=== PATIENT | female | born 1980 | race Caucasian/White ===

== ENCOUNTER 2024-09-14 15:01 | Emergency (ER) | payer MEDICAID, SELFPAY ==
[2024-09-14 15:24] VITALS: BP 160/104; PULSE 94; TEMP 36.8; O2SAT 96; BMI 37.2
--- NOTE | 2024-09-14 16:01 | ED_ITS ---
HPI - Back Pain/Injury 2 General: Chief Complaint: Back Pain/Injury Stated Complaint: lower back/ R side pain Time Seen by Provider: 09/14/24 15:21 Source: patient Mode of arrival: ambulatory Limitations: no limitations History of Present Illness: Patient is a 43-year-old female presents to ED today with complaint of right sided back pain beginning yesterday. She feels like pain is burning and worse with movement and palpation. She has no other complaints. No cough, shortness of breath, or difficulty breathing. Denies abdominal pain, nausea, vomiting, or changes in bowel movements. She is not having any dysuria, frequency, urgency. She states she had identical symptoms approximately a month ago and was seen elsewhere for evaluation. Patient states she had urine, labs, and CT imaging performed overall of which were unremarkable. She does have her CT report on her phone and this was reviewed. They found hepatomegaly/fatty liver and incidental adrenal nodules. She states she is following up on these. She has no other injuries or complaints at this time. She appears in no acute distress upon arrival. MD elicited complaint: back pain Onset (ago): day(s) Timing: constant Severity: moderate Similar Symptoms Previously: Yes Quality: burning Location: thoracic spine and right lower back Radiation: none Exacerbating factors: movement Relieving factors: none Associated symptoms: Deny abdominal pain, chills, difficulty walking, dysuria, fatigue, fever(s), nausea, urinary urgency or vomiting Work related injury: No Related Data Previous Rx's ?Medication ?Instructions ?Recorded diclofenac sodium 50 mg 50 mg PO Q12H PRN pain #20 t abs 09/14/24 tablet,delayed release methocarbamol 500 mg tablet 1,000 mg (2 x 500 mg) PO Q 8H #30 09/14/24 tabs Allergies Allergy/AdvReac Type Severity Reaction Status Date / Time aspirin Allergy Unknown Verified 09/14/24 15:28 Review of Systems 2 Const: Denies: fever(s), chills, body aches, fatigue or malaise Card: Denies: chest pain Resp: Denies: dyspnea GI: Denies: abdominal pain, nausea, vomiting or diarrhea : Denies: difficulty voiding, dysuria, urinary frequency, urinary urgency, urinary hesitancy or pelvic pain Musc: Reports: back pain; Denies: neck pain, extremity pain, extremity swelling, joint pain, joint swelling or joint redness Skin/Breast: Denies: rash Neuro: Denies: numbness in extremities, weakness in extremities, sensory changes or difficulty walking Physical Exam 2 Const: COMMON NORMALS: no acute distress, patient oriented x3, no limitations, alert and well nourished GENERAL APPEARANCE: cooperative NUTRITIONAL APPEARANCE: obese ORIENTATION/CONSCIOUSNESS: Yes awake, Yes oriented to person, Yes oriented to place and Yes oriented to time Chest: COMMONS NORMALS: normal inspection of the chest and normal palpation of entire chest wall Resp: COMMON NORMALS: normal respiratory effort and clear to auscultation bilaterally AUSCULTATION: clear to auscultation bilaterally Cardio: COMMON NORMALS: regular rate and regular rhythm RATE: regular rate RHYTHM: regular rhythm GI: COMMON NORMALS: Normal to inspection, nondistended, normoactive bowel sounds present, Soft to palpation, non-tender, No hepatosplenomegaly present and no masses PALPATION: Yes Soft to palpation and Yes No hepatosplenomegaly present : COMMON NORMALS: Yes no CVA tenderness BLADDER/KIDNEY EXAM: Yes no CVA tenderness Back/Pelvis: COMMON NORMALS: no CVA tenderness, thoracic and lumbar spine normal to inspection, thoraco-lumbar ROM normal and straight leg raise negative bilaterally THORACIC SPINE/UPPER BACK: No thoracic spinal tenderness L UMBAR SPINE/LOWER BACK: No lumbar spinal tenderness PELVIS: No sciatic notch tenderness SACROILIAC JOINTS: Yes SI joints normal SACRUM: no tenderness COCCYX: no tenderness BACK IMAGE (FEMALE): 1. TTP Extremity: GENERAL: Yes normal exam except as noted Neuro: COMMON NORMALS: patient oriented x3 SENSORIUM/ORIENTATION: Yes alert, Yes oriented to person, Yes oriented to place and Yes oriented to time Skin: COMMON NORMALS: no rashes or lesions noted GENERAL SKIN EXAM: no rashes or lesions noted Course 2 Vital Signs: Vital signs: Vital Signs Temperature 98.2 F 09/14/24 15:24 Pulse Rate 94 09/14/24 15:24 Blood Pressure 160/104 09/14/24 15:24 Pulse Oximetry 96 09/14/24 15:24 Oxygen Delivery Me thod Room Air 09/14/24 15:24 MDM - Back Pain/Injury Medical Decision Making Patient is reproducible back pain to the right side of her back. She appears no acute distress. CT imaging performed a month ago was essentially unremarkable. She is not having any signs or symptoms that would make me concerned for a pyelonephritis. History/clinical presentation seemingly unlikely for ureterolithiasis. She states last time her symptoms resolved spontaneously. Will treat with anti-inflammatories and muscle relaxers. Recommend drinking plenty of fluids. Did discuss returning for worsening symptoms. Otherwise would like her to follow up with PCP. Medical Records I reviewed the patient's medical records. No radiology studies performed this visit Discharge Plan Discharge Patient Disposition: Home Clinical Impression: Acute right-sided back pain Qualifiers: Back pain location: low back pain Sciatica presence: without sciatica Qualified Code(s): M54.50 - Low back pain, unspecified Condition: Stable Prescriptions: New methocarbamol 500 mg tablet 1,000 mg PO Q8H Qty: 30 0RF diclofenac sodium 50 mg tablet,delayed release (DR/EC) 50 mg PO Q12H PRN (Reason: pain) Qty: 20 0RF Discharge Orders: Discharge ED (Routine); Ordered 09/14/24 Ordered By: Mabel Ramsey Activity Restrictions/Additional Instructions: As we discussed, we went over the results of the last CT scan you had approximately a month ago. At this time I would forego repeat imaging today due to the risk of repeated radiation. We will treat with anti-inflammatories and muscle relaxers. You may do ice and heat to the area as well as topical therapies such as IcyHot. Please follow-up with primary care. You may return to the emergency department for worsening pain or any other concerns you may have. I hope you begin to feel better soon. Print Language: Cape Verdean Coding Level of Care Code ED Eyeglass Lens Grinder for Mary Clarke
[2024-09-14] MEDS: orphenadrine 30 mg/mL Inj 2 mL 60 MG IM (16:11)
[2024-09-14 16:28] VITALS: BP 149/81; PULSE 95; O2SAT 96
== END 2024-09-14 16:30 | disposition home or self-care (01) ==
PROVIDERS: Emergency Provider Physician Assistant
DX: M54.50 Low back pain, unspecified (principal)
CPT/HCPCS: 96372; 99283; J2360

== ENCOUNTER 2024-09-22 15:47 | Emergency (ER) | payer MEDICAID, SELFPAY ==
[2024-09-22 15:50] VITALS: BP 143/86; PULSE 108; RESP 15; TEMP 36.7; O2SAT 99; BMI 30.2
--- NOTE | 2024-09-22 15:54 | ECG_ITS ---
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 Measurements Intervals Maybee Rate: 109 P: 55 PA: 167 QRS: 59 QRSD: 77 T: 44 QT: 311 QTc: 419 Interpretive Statements SINUS TACHYCARDIA NONSPECIFIC T-WAVE ABNORMALITY ABNORMAL RHYTHM ECG No previous ECG available for comparison Electronically Signed On 09-22-2024 19:25:01 CDT by Caron Langley M.D. [email or web address]
[2024-09-22 16:29] VITALS: BP 150/104; PULSE 95; O2SAT 96
--- NOTE | 2024-09-22 16:34 | ED_ITS ---
HPI - Recheck/Abnormal Lab/Rx 2 General: Chief Complaint: Recheck/Abnormal Lab/Rx Stated Complaint: high B/P , rapid heart beat Time Seen by Provider: 09/22/24 16:32 Source: patient Mode of arrival: ambulatory Limitations: no limitations History of Present Illness: 43-year-old female states she has had a history of palpitations in the past and mitral valve regurg states that over the last 2 days she had fell like her heart has been racing her blood pressure been running high states she had stopped at [employer] and it was in the 150s. She had some mild chest pains denies any chest pain currently she denies any shortness of breath denies any worse improved factors states she had moved here from [place] has not been able to follow- up with anyone here did have a cardiology density Related Data Previous Rx's ?Medication ?Instructions ?Recorded diclofenac sodium 50 mg 50 mg PO Q12H PRN pain #20 t abs 09/14/24 tablet,delayed release methocarbamol 500 mg tablet 1,000 mg (2 x 500 mg) PO Q 8H #30 09/14/24 tabs metoprolol succinate 25 mg 25 mg PO DAILY #30 tabs tablet,extended release 24 hr Allergies Allergy/AdvReac Type Severity Reaction Status Date / Time aspirin Allergy Unknown Verified 09/14/24 15:28 Review of Systems 2 Const: Denies: fever(s), chills, body aches or change in appetite ENMT: Denies: throat pain or dental pain Card: Reports: chest pain and palpitations Resp: Denies: dyspnea GI: Denies: abdominal pain, nausea, vomiting or diarrhea Musc: Denies: neck pain or back pain Skin/Breast: Denies: rash Neuro: Denies: headache(s) Physical Exam 2 Const: COMMON NORMALS: no acute distress, patient oriented x3 and healthy appearing HENMT: COMMON NORMALS: normocephalic and atraumatic HEAD & SCALP: n ormocephalic and atraumatic Eye: COMMON NORMALS: conjunctivae normal CONJUNCTIVA: Yes conjunctivae normal Neck/C-Spine: COMMON NORMALS: full ROM and supple Chest: COMMONS NORMALS: normal inspection of the chest Resp: COMMON NORMALS: normal respiratory effort, No retractions, No use of accessory muscles and clear to auscultation bilaterally AUSCULTATION: clear to auscultation bilaterally Cardio: COMMON NORMALS: regular rhythm RATE: tachycardic RHYTHM: regular rhythm GI: COMMON NORMALS: Normal to inspection, nondistended, normoactive bowel sounds present, Soft to palpation, non-tender and no masses PALPATION: Yes Soft to palpation Extremity: COMMON NORMALS: normal to inspection and full ROM Neuro: COMMON NORMALS: patient oriented x3, moves all extremities and no focal motor deficits Psych: COMMON NORMALS: mental status grossly normal, Normal thought process present and cooperative THOUGHT PROCESS: Normal thought process present Skin: COMMON NORMALS: no rashes or lesions noted and no wounds GENERAL SKIN EXAM: no rashes or lesions noted Course 2 Vital Signs: Vital signs: Vital Signs Temperature 98.0 F 09/22/24 15:50 Pulse Rate 96 09/22/24 17:29 Respiratory Rate 15 09/22/24 15:50 Blood Pressure 127/80 09/22/24 17:29 Pulse Oximetry 96 09/22/24 17:29 Oxygen Delivery Me thod Room Air 09/22/24 15:50 MDM - Recheck/Abnormal Lab/Rx Medical Decision Making Patient presents here with palpitations on hypertension some intermittent chest pains for some time her troponin here is negative she has no signs of acute coronary syndrome no signs of pulm embolism heart rate and blood pressure improved here after labetalol we will start her on metoprolol get her follow-up with cardiology she is return if worsening. Medical Records I reviewed the patient's medical records. Lab Data I reviewed the patient's lab results. 09/22/24 16:29 09/22/24 16:29 Laboratory Results WBC 10.93 10^3/uL (3.29-11.43) 09/22/24 16:29 RBC 4.73 10^6/uL (3.85-5.65) 09/22/24 16: Hgb 14.60 g/dL (11.27-16.99) 09/22/24 16: Hct 43.3 % (36-47) 09/22/24 16:29 MCV 91.5 fl (85-98) 09/22/24 16: MCH 30.9 pg (27-33) 09/22/24 16: MCHC 33.7 g/dL (30-55) 09/22/24 16:29 RDW 12.7 % (12.1-15.1) 09/22/24 16: Plt Count 318 10^3/cmm (157-399) 09/22/24 16: MPV 9.1 fL (7.4-10.4) 09/22/24 16: Neut % (Auto) 66.2 % 09/22/24 16: Lymph % (Auto) 27.2 % 09/22/24 16: Catron % (Auto) 4.3 % 09/22/24 16: Eos % (Auto) 1.4 % 09/22/24 16: Baso % (Auto) 0.6 % 09/22/24: Neut # (Auto) 7.24 10^3/uL (1.8-7.7) 09/22/24 16: Lymph # (Auto) 3.0 10^3/uL (0.8-4.8) 09/22/24: Catron # (Auto) 0.5 10^3/uL (0.2-0.9) 09/22/24 16: Eos # (Auto) 0.2 10^3/uL (0.0-0.8) 09/22/24 16: Baso # (Auto) 0.1 10^3/uL (0.0-0.1) 09/22/24 16: Nucleated RBC % (auto) 0 % 09/22/24: Nucleated RBCs # 0.0 /100WBC 09/22/24 16: Sodium 137 mmol/L (136-145) 09/22/24 16: Potassium 4.1 mmol/L (3.5-5.1) 09/22/24 16: Chloride 101 mmol/L (98-107) 09/22/24 16: Carbon Dioxide 22 mmol/L (22-29) 09/22/24 16: Anion Gap 18.1 (5-19) 09/22/24 16: BUN 11 mg/dL (6-20) 09/22/24 16: Creatinine 0.7 mg/dL (0.5-0.9) 09/22/24 16: GFR Calculation 92.2 mL/min (90-130) 09/22/24 16:29 Glucose 99 mg/dL (65-115) 09/22/24 16:29 Calculated Osmolality 283 mOsm/kg (285-295) L 09/22/24 16:29 Calcium 9.6 mg/dL (8.5-10.5) 09/22/24 16:29 Total Bilirubin 0.3 mg/dL (0.15-1.2) 09/22/24 16:29 AST 16 U/L (0-32) 09/22/24 16:29 ALT 18 U/L (0-33) 09/22/24 16:29 Alkaline Phosphatase 123 U/L (35-105) H 09/22/24 16:29 Troponin T Baseline < 6 ng/L (0-10) 09/22/24 16:29 Total Protein 7.2 g/dL (6.6-8.7) 09/22/24 16:29 Albumin 4.5 g/dL (3.5-5.2) 09/22/24 16:29 Globulin 2.7 g/dL (1.3-4.6) 09/22/24 16:29 All radiology interpretation(s) finalized by discharge EKG Data EKG 1: I personally reviewed and interpreted this EKG as follows: EKG interpretation date: 09/22/24 EKG interpretation time: 15:54 Interpretation: sinus tach hr [address] elevation qrs 77 qtc 375 Discharge Plan Discharge Patient Disposition: Home Clinical Impression: Hypertension, Tachycardia Condition: Stable Prescriptions: New metoprolol succinate 25 mg tablet extended release 24 hr 25 mg PO DAILY Qty: 30 0RF No Action methocarbamol 500 mg tablet 1,000 mg PO Q8H Qty: 30 0RF diclofenac sodium 50 mg tablet,delayed release (DR/EC) 50 mg PO Q12H PRN (Reason: pain) Qty: 20 0RF Discharge Orders: Discharge ED (Routine); Ordered 09/22/24 Ordered By: Martha Tabor Discharge Diet: Advance as tolerated Discharge Activity: Resume usual activity Patient Instructions: Heart Palpitations (ED) Print Language: Turkmen Coding Level of Care Code ED Back Up Scan Coordinator for Mary Clarke
[2024-09-22 16:42] LABS: Basophils # 0.1 10^3/uL (0.0-0.1); Basophils % 0.6 %; Eosinophils # 0.2 10^3/uL (0.0-0.8); Eosinophils % 1.4 %; Hematocrit 43.3 % (36-47); Lymphocytes % 27.2 %; Mean Corpuscular HGB Conc 33.7 g/dL (30-55); Mean Corpuscular Hemoglobin 30.9 pg (27-33); Mean Corpuscular Volume 91.5 fl (85-98); Mean Platelet Volume 9.1 fL (7.4-10.4); Monocytes # 0.5 10^3/uL (0.2-0.9); Monocytes % 4.3 %; Neutrophils # 7.24 10^3/uL (1.8-7.7); Neutrophils % 66.2 %; Nucleated Red Blood Cells % 0 %; Platelet Count 318 10^3/cmm (157-399); Red Blood Count 4.73 10^6/uL (3.85-5.65); Red Cell Distribution Width 12.7 % (12.1-15.1); White Blood Count 10.93 10^3/uL (3.29-11.43)
[2024-09-22 16:59] VITALS: BP 126/93; PULSE 103; O2SAT 95
[2024-09-22 17:07] LABS: Alanine Aminotransferase 18 U/L (0-33); Albumin Level 4.5 g/dL (3.5-5.2); Alkaline Phosphatase 123 U/L (35-105); Aspartate Amino Transferase 16 U/L (0-32); Blood Urea Nitrogen 11 mg/dL (6-20); Calcium 9.6 mg/dL (8.5-10.5); Carbon Dioxide 22 mmol/L (22-29); Chloride 101 mmol/L (98-107); Creatinine Clr Calc Pharmacy 113.6008; Globulin 2.7 g/dL (1.3-4.6); Glomerular Filtration Rate 92.2 mL/min (90-130); Glucose 99 mg/dL (65-115); Osmolality Calculated 283 mOsm/kg (285-295); Sodium 137 mmol/L (136-145); Total Bilirubin 0.3 mg/dL (0.15-1.2); Total Protein 7.2 g/dL (6.6-8.7)
[2024-09-22] MEDS: labetalol 5 mg/mL SDV 20mL IVP (17:19)
--- NOTE | 2024-09-22 17:25 | XRR_ITS ---
PROCEDURE INFORMATION: Exam: XR Chest Exam date and time: 09/22/2024 5:34 PM Age: 43 years old Clinical indication: Pain; Chest pressure; Additional info: Cp TECHNIQUE: Imaging protocol: Radiologic exam of the chest. Views: 1 view. COMPARISON: No relevant prior studies available. FINDINGS: Lungs: No pulmonary consolidation. Pleural spaces: No pleural effusion or pneumothorax. Heart/Mediastinum: The cardiomediastinal silhouette is within normal limits. Bones/joints: No acute osseous abnormalities are seen. XR/XR chest 1V portable [id number] IMPRESSION: No acute cardiopulmonary disease.
[2024-09-22 17:29] VITALS: BP 127/80; PULSE 96; O2SAT 96
[2024-09-22 17:29] LABS: Troponin(5th) Baseline < 6 ng/L (0-10)
[2024-09-22 17:33] LABS: Anion Gap 18.1 (5-19); Potassium 4.1 mmol/L (3.5-5.1)
[2024-09-22 17:49] VITALS: BP 127/80; PULSE 85; O2SAT 95
--- NOTE | 2024-09-23 14:03 | DCPLANNER ---
messaged heart care for er f/u
== END 2024-09-22 17:50 | disposition home or self-care (01) ==
PROVIDERS: Emergency Provider Emergency Medicine
DX: R00.0 Tachycardia, unspecified (principal); I10 Essential (primary) hypertension
CPT/HCPCS: 71045; 80053; 84484; 85025; 93005; 96374; 99285; J3490